=== PATIENT | female | born 1995 | race Caucasian/White ===

== ENCOUNTER 2021-11-22 13:22 | Emergency (ER) | payer BC ==
--- OUTSIDE RECORDS SUMMARY | 2021-11-22 13:25 | XMS REPORT | Continuity of Care Document ---
:1995 Author Organization [facility] t Address [address] [place] [address] Care Team Providers Name Role Phone BRUCE Attending Clinician Unavailable Jeremiah SOLIS, Rosario Attending Clinician LESA Attending Clinician Unavailable Payers Payer Name Policy Type Policy Number Effective Date Expiration Date S [facility] [id number] 2016 00:00:00 Problems Condition Condition Condition Status Onset Resolution Last Treating Co mments Source Name Details Category Date Date Treatment Clinician Date No known No known Disease Kelse y active active Seybold problems problems Allergies, Adverse Reactions, Alerts Allergy Allergy Status Severity Reaction(s) Onset Inactive Treating Comm ents Source Name Type Date Date Clinician NO KNOWN Drug Active [facility] ALLERGIE Class [facility] of [facility] Social History Social Habit Start Date Stop Date Quantity Comments Source Exposure to Not sure aSndi Gonzalezol d SARS-CoV-2 (event) Sex Ass[birth year] At [birth year] Sandi Se ybold 00:00:00 00:00:00 Smoking Status Start Date Stop Date Source Never smoked tobacco Sandi Gonzalez old Medications Ordered Filled Start Stop Current Ordering Indication Dosage Frequency Signature Comments Components Source Medication Medication Date Date Medication? Clinician (SIG) Name Name Benzonatate 2020-10 Yes [id number] 100mg [id number] Take 1 Sandi (Tessalon 0-22 [id number] capsule S nora Doll) 100 00:00: 3D (100 mg MG oral 00 total) by Capsule mouth 3 times daily as needed for cough Azithromyci 2020-10- No [id number] Take 2 Sandi n 250 MG 0-22 10-28 tablets by Seyb old oral Tablet 00:00: 04:59 mouth on 00 :00 day 1 then 1 tablet by mouth daily for 4 days thereafter . Immunizations Ordered Immunization Filled Immunization Date Status Commen ts Source Name Name Meningococcal 2017-02-16 Completed Sandi Seyb old Vaccine- 00:00:00 Conjugate(Menveo) Varicella Vaccine 2002-04-17 Completed Sandi Seybold 00:00:00 DTaP Unspecified 2002-01-23 Completed Sandi S eybold 00:00:00 MMR- Measles, Mumps, 2002-01-23 Completed Jill ey Seybold Rubella 00:00:00 MMR- Measles, Mumps, 2001-05-16 Completed Jill ey Seybold Rubella 00:00:00 IPV- Inactivated 2001-05-16 Completed Sandi S eybold Polio Vaccine 00:00:00 DTaP Unspecified 1998-08-09 Completed Sandi S eybold 00:00:00 IPV- Inactivated 1998-08-09 Completed Sandi S eybold Polio Vaccine 00:00:00 Hib, unspecified 1998-05-08 Completed Sandi S eybold formulation 00:00:00 MMR- Measles, Mumps, 1998-05-08 Completed Jill ey Seybold Rubella 00:00:00 DTaP Unspecified 1995 Completed Sandi S eybold 00:00:00 Hepatitis B, 1995 Completed Sandi Maoybo ld Adolescent Or 00:00:00 Pediatric Hib, unspecified 1995 Completed Sandi S eybold formulation 00:00:00 IPV- Inactivated 1995 Completed Sandi S eybold Polio Vaccine 00:00:00 DTaP Unspecified 1995 Completed Sandi S eybold 00:00:00 Hib, unspecified 1995 Completed Sandi S eybold formulation 00:00:00 OPV- Oral Polio 1995 Completed Sandi Se ybold Vaccine 00:00:00 DTaP Unspecified 1995 Completed Sandi S eybold 00:00:00 Hepatitis B, 1995 Completed Sandi Maoybo ld Adolescent Or 00:00:00 Pediatric Hib, unspecified 1995 Completed Sandi S eybold formulation 00:00:00 OPV- Oral Polio 1995 Completed Sandi Mao ybold Vaccine 00:00:00 Hepatitis B, 1995 Completed Sandi Gabriel ld Adolescent Or 00:00:00 Pediatric Procedures This patient has no known procedures. Encounters Start End Encounter Admission Attending Care Care Encounter Source Date/Time Date/Time Type Type Clinicians Facility Department ID 2021-12-01 2021-12-01 Outpatient R BRUCE [facility] [id number] Univers 10:30:00 10:30:00 ADITHYA [id number] [facility] 2021-07-31 2021-07-31 Telemedici Jeremiah Pierson [id number] Sandi 11:21:42 11:46:43 ne Eliana Silver [id number] Se ghada Somogyi [id number] 2020-12-01 2020-12-01 [facility] [id number] Univers 13:30:00 13:30:00 ADITHYA [id number] [facility] 2020-12-01 2020-12-01 [facility] [id number] Univers 13:30:00 13:30:00 ADITHYA [facility] 2020-11-06 2020-11-06 [facility] [id number] Univers 10:00:00 10:00:00 ADITHYA [id number] [facility] 2020-10-13 2020-10-13 Outpatient R BRUCE [facility] [id number] Univers 08:30:00 08:30:00 ADITHYA [facility] 2020-04-25 2020-04-25 Outpatient R [facility] [id number] Univers 08:00:00 08:00:00 [place] [facility] 2020-04-25 2020-04-25 Outpatient R LESA [facility] [id number] Univers 08:00:00 08:00:00 STEFANY [facility] 2020-04-24 2020-04-24 Outpatient R [facility] [id number] Univers 15:20:00 15:20:00 [id number] [facility] Results This patient has no known results.
[2021-11-22] MEDS ORDERED: ONDANSETRON 4 MG/2 ML VIAL ONE (14:13)
[2021-11-22] MEDS ORDERED: FAMOTIDINE 20 MG/2 ML VIAL IV ONE (14:13)
[2021-11-22] MEDS ORDERED: NA CHLORIDE 0.9% 1,000 ML ONE (14:13)
[2021-11-22 14:20] LABS: Urine Blood 2+ (Negative); Urine Glucose Negative (Negative); Urine Protein Negative (Negative); Urine Specific Gravity >=1.030 (1.005-1.030)
[2021-11-22 14:21] LABS: Absolute Lymphocytes (CBC) 1.9 K/uL (0.7-4.9); Hematocrit 43.1 % (36.0-45.0); Lymphocytes % 32.4 % (15.3-44.8); MPV 8.8 fL (7.6-11.3); RBC Red Blood Cell Count 4.88 M/uL (3.86-4.86)
[2021-11-22 14:51] LABS: ALT/SGPT 92 U/L (12-78); AST/SGOT 52 U/L (15-37); Albumin 3.6 g/dL (3.4-5.0); Alkaline Phosphatase 52 U/L (45-117); BUN Blood Urea Nitrogen 13 mg/dL (7-18); Bicarbonate 22 mmol/L (21-32); Bilirubin Direct < 0.1 mg/dL (0-0.2); Bilirubin Total 0.2 mg/dL (0.2-1.0); Glucose Level 124 mg/dL (74-106); Lipase 58 U/L (73-393); Potassium 3.6 mmol/L (3.5-5.1); Protein, Total 7.6 g/dL (6.4-8.2); Sodium Level 136 mmol/L (136-145)
--- NOTE | 2021-11-22 15:25 | RAD REPORT ---
EXAM DESCRIPTION: CT - Abdomen Pelvis W Contrast - 11/22/2021 3:00 pm CLINICAL HISTORY: ABD PAIN COMPARISON: No comparisons TECHNIQUE: Biphasic, helical CT imaging of the abdomen and pelvis was performed following 100 ml non -ionic IV contrast. No oral contrast administered. All CT scans are performed using dose optimization technique as appropriate and may include automated exposure control or mA/KV adjustment according to patient size. FINDINGS: No suspicious findings in the lung bases. The liver, spleen, and pancreas show no suspicious findings. Gallbladder and biliary tree are also wi thout suspicious finding. Symmetric renal function is seen with no hydronephrosis or suspicious renal mass. No pyelonephritis o r acute parenchymal process. No bladder abnormalities. No adrenal abnormalities. No uterine abnormali ty. Primary ovarian process is not seen. Ovaries are difficult to distinguish from the isodense small bowel. Food and fluid fill the stomach. No gastric wall thickening or mass. Outlet obstruction is not suspec katey. Small bowel loops are not dilated. There are multiple fluid-filled distal small bowel loops. Flu id filled colon seen on the right side. No appendicitis findings. No free air or pneumatosis. Trace free fluid in the dependent portion of the pelvis is within physiol ogic limits. No hernia, mass or bulky lymphadenopathy. No suspicious bony findings. IMPRESSION: Contrast enhanced CT abdomen and pelvis showing no acute or emergent finding. Multiple fluid-filled distal small bowel loops are present. Nonspecific enteritis would be possible.
--- NOTE | 2021-11-22 16:43 | EDPHYS ---
Physician Documentation [facility] Name: Mary Villafana Age: 26 yrs Sex: Female : 1995 Arrival Date: 11/22/2021 Time: 13:28 Bed 14 Private MD: ED Physician Chon Gomez HPI: 11/22 14:00 This 26 yrs old Female presents to ER via Ambulatory with complaints of Abdominal Pain, jmm Nausea/Vomiting/Diarrhea. 14:00 The patient presents with abdominal pain. Onset: The symptoms/episode began/occurred jmm gradually, 4 day(s) ago. The symptoms do not radiate. Associated signs and symptoms: Pertinent positives: nausea and vomiting, diarrhea. The symptoms are described as achy. Modifying factors: The symptoms are alleviated by nothing, the symptoms are aggravated by nothing. The patient has experienced similar episodes in the past, With kidney stones. 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 - Social history:: Smoking status: Reported history of juuling and/or vaping. ROS: 14:00 Constitutional: Negative for fever, chills, and weight loss, Cardiovascular: Negative jmm for chest pain, palpitations, and edema, Respiratory: Negative for shortness of breath, cough, wheezing, and pleuritic chest pain. 14:00 Abdomen/GI: Positive for abdominal pain, nausea and vomiting, diarrhea. 14:00 All other systems are negative. Exam: 14:00 Constitutional: This is a well developed, well nourished patient who is awake, alert, jmm and in no acute distress. Head/Face: atraumatic. Eyes: EOMI, no conjunctival erythema appreciated ENT: Moist Mucus Membranes Neck: Trachea midline, Supple Chest/axilla: Normal chest wall appearance and motion. Cardiovascular: Regular rate and rhythm. No edema appreciated Respiratory: Normal respirations, no respiratory distress appreciated 14:00 Skin: General appearance color normal MS/ Extremity: Moves all extremities, no obvious deformities appreciated, no edema noted to the lower extremities Neuro: Awake and alert Psych: Behavior is normal, Mood is normal, Patient is cooperative and pleasant 14:00 Abdomen/GI: Inspection: abdomen appears normal, Bowel sounds: normal, Palpation: soft, moderate abdominal tenderness, in the right upper quadrant, left upper quadrant, right lower quadrant and left lower quadrant. Vital Signs: 13:33 BP 133 / 106; Pulse 106; Resp 17; Temp 98.3; Pulse Ox 100% ; Weight 52.62 kg; Height 5 7 ft. 2 in. (157.48 cm); Pain 4/10; 15:00 BP 127 / 88; Pulse 88; Resp 20; Pulse Ox 100% ; Pain 6/10; jh6 17:28 BP 132 / 86; Pulse 86; Resp 18; Pulse Ox 99% ; Pain 2/10; jh6 13:33 Body Mass Index 21.22 (52.62 kg, 157.48 cm) 7 MDM: 14:00 Patient medically screened. fermin 16:42 Data reviewed: vital signs, nurses notes. Counseling: I had a detailed discussion with fermin the patient and/or guardian regarding: the historical points, exam findings, and any diagnostic results supporting the discharge/admit diagnosis, lab results, radiology results, the need for outpatient follow up, to return to the emergency department if symptoms worsen or persist or if there are any questions or concerns that arise at home. ED course: Patient is alert and nontoxic in appearance NAD. Able to tolerate p.o. Patient advised follow-up PCP and otherwise given strict return precautions. Patient understood agrees plan of care.. 11/22 14:00 Order name: Basic Metabolic Panel; Complete Time: 14:59 [facility] 11/22 14:00 Order name: CBC with Diff; Complete Time: 14:44 [facility] 11/22 14:00 Order name: Hepatic Function; Complete Time: 14:59 [facility] 11/22 14:00 Order name: Lipase; Complete Time: 14:59 [facility] 11/22 14:20 Order name: Urine Dipstick-Ancillary; Complete Time: 14:22 [facility] 11/22 14:22 Order name: Urine --Ancillary (enter results) 11/22 14:00 Order name: IV Saline Lock; Complete Time: 14:11 [facility] 11/22 14:00 Order name: Labs collected and sent; Complete Time: 14:11 [facility] 11/22 14:00 Order name: Urine Dipstick-Ancillary (obtain specimen); Complete Time: 14:11 [facility] 11/22 14:01 Order name: CT Abd/Pelvis - IV Contrast Only; Complete Time: 15:38 [facility] 11/22 14:22 Order name: Urine --Ancillary; Complete Time: 14:59 [facility] 11/22 14:00 Order name: Urine Test (obtain specimen); Complete Time: 14:11 [facility] Administered Medications: 14:16 Drug: NS 0.9% 1000 ml Route: IV; Rate: 1 bolus; Site: right antecubital; ph 14:17 Drug: Zofran (Ondansetron) 4 mg Route: IVP; Site: right antecubital; ph 14:17 Drug: Pepcid (famotidine) 10 mg Route: IVP; Site: right antecubital; ph Disposition: 19:30 Co-signature as Attending Physician, Chon Gomez MD I agree with the assessment and kdr plan of care. Disposition Summary: 11/22/21 16:43 Discharge Ordered Location: Home [facility] Condition: Stable [facility] Diagnosis - Vomiting [facility] - Diarrhea, unspecified [facility] Followup: [facility] - With: Private Physician - When: 2 - 3 days - Reason: Recheck today's complaints, Continuance of care, Re-evaluation by your physician Discharge Instructions: - Discharge Summary Sheet [facility] - Diarrhea, Adult jm - Vomiting, Child [facility] Forms: - Medication Reconciliation Form [facility] - Thank You Letter [facility] - Antibiotic Education [facility] - Prescription Opioid Use [facility] Prescriptions: - ondansetron 4 mg Oral tablet,disintegrating - place 1 tablet by TRANSLINGUAL route every 4-6 hours; 20 tablet; Refills: 0, [facility] Product Selection Permitted - Carafate 1 gram Oral Tablet - take 1 tablet by ORAL route 4 times per day take on an empty stomach, beginning jm on waking and last dose at bedtime; 100 tablet; Refills: 0, Product Selection Permitted Signatures: Dispatcher [employer] [facility] Chon Gomez MD MD kdr Mickail, Joel, PA PA [facility] Angela Petersen RN RN ph Essence Sahu RN RN jl7 Corrections: (The following items were deleted from the chart) 13:35 13:34 Home Meds: None; jl7 jl7 13:35 13:34 PMHx: None; jl7 jl7
--- NOTE | 2021-11-22 16:43 | ER ---
Nurse's Notes [facility] Name: Mary Villafana Age: 26 yrs Sex: Female : 1995 Arrival Date: 11/22/2021 Time: 13:28 Bed 14 Private MD: Diagnosis: Vomiting;Diarrhea, unspecified Presentation: 11/22 13:33 Chief complaint: Patient states: Lower abdominal pain, N/V/D x 3 days. Coronavirus jl7 screen: At this time, the client does not indicate any symptoms associated with coronavirus-19. Ebola Screen: No symptoms or risks identified at this time. Initial Sepsis Screen: Does the patient meet any 2 criteria? No. Patient's initial sepsis screen is negative. Does the patient have a suspected source of infection? No. Patient's initial sepsis screen is negative. Risk Assessment: Do you want to hurt yourself or someone else? Patient reports no desire to harm self or others. Onset of symptoms was November 19, 2021. 13:33 Method Of Arrival: Ambulatory [facility] 13:33 Acuity: KATHERINE 3 jl7 Triage Assessment: 13:34 General: Appears in no apparent distress. uncomfortable, Behavior is calm, cooperative, jl7 appropriate for age. Pain: Complains of pain in right lower quadrant and left lower quadrant Pain currently is 4 out of 10 on a pain scale. at worst was 9 out of 10 on a pain scale. GI: Reports diarrhea, nausea, vomiting. 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 - Social history:: Smoking status: Reported history of juuling and/or vaping. Screenin:40 Abuse screen: Denies threats or abuse. 6 13:40 Nutritional screening: No deficits noted. Tuberculosis screening: No symptoms or risk 6 factors identified. Fall Risk IV access (20 points). Assessment: 13:40 General: Appears in no apparent distress. Behavior is calm, cooperative. 6 13:40 Pain: Complains of pain in right upper quadrant, left upper quadrant, right lower jh6 quadrant and left lower quadrant Pain currently is 7 out of 10 on a pain scale. Quality of pain is described as crampy. 13:40 GI: Abd is soft and non tender. jh6 14:50 Reassessment: No changes from previously documented assessment. Patient is alert, jh6 oriented x 3, equal unlabored respirations, skin warm/dry/pink. Patient states symptoms have improved. 16:20 Reassessment: Patient is alert, oriented x 3, equal unlabored respirations, skin jh6 warm/dry/pink. Patient denies pain at this time. Patient states feeling better. Vital Signs: 13:33 BP 133 / 106; Pulse 106; Resp 17; Temp 98.3; Pulse Ox 100% ; Weight 52.62 kg; Height 5 jl7 ft. 2 in. (157.48 cm); Pain 4/10; 15:00 BP 127 / 88; Pulse 88; Resp 20; Pulse Ox 100% ; Pain 6/10; jh6 17:28 BP 132 / 86; Pulse 86; Resp 18; Pulse Ox 99% ; Pain 2/10; jh6 13:33 Body Mass Index 21.22 (52.62 kg, 157.48 cm) 7 ED Course: 13:28 Patient arrived in ED. j6 13:34 Triage completed. jl7 13:34 Arm band placed on right wrist. jl7 13:40 Bed in low position. Call light in reach. Side rails up X 1. Adult w/ patient. [facility] 13:43 Sebastián Alicea PA is PHCP. [facility] 13:43 Chon Gomez MD is Attending Physician. [facility] 13:44 Selena Rodrigues, CODIE is Primary Nurse. 6 14:17 Initial lab(s) drawn, sent to lab. Inserted saline lock: 22 gauge in right antecubital ph area, using aseptic technique. Blood collected. 14:[address] jh6 15:00 CT Abd/Pelvis - IV Contrast Only In Process Unspecified. EDMS 16:20 IV discontinued, intact, bleeding controlled, No redness/swelling at site. Pressure jh6 dressing applied. Administered Medications: 14:16 Drug: NS 0.9% 1000 ml Route: IV; Rate: 1 bolus; Site: right antecubital; ph 14:17 Drug: Zofran (Ondansetron) 4 mg Route: IVP; Site: right antecubital; ph 14:17 Drug: Pepcid (famotidine) 10 mg Route: IVP; Site: right antecubital; ph Outcome: 16:43 Discharge ordered by MD. christensen 17:31 Discharged to home ambulatory. jh6 17:31 Condition: good 17:31 Discharge instructions given to patient, Instructed on discharge instructions, follow up and referral plans. Demonstrated understanding of instructions, follow-up care, medications, Prescriptions given X 1. 17:32 Patient left the ED. jh6 Signatures: Dispatcher [employer] EDMS Sebastián Alicea PA PA jmm Hall, Patricia RN RN Essence Sahu RN RN Selena Salter jj6 Selena Rodrigues RN RN jh6 Corrections: (The following items were deleted from the chart) 13:35 13:34 Home Meds: None; gabe jl7 13:35 13:34 PMHx: None; gabe jlJoshua
[2021-11-22 17:44] VITALS: TEMP 98.3
[2021-11-22 17:46] VITALS: BP 132/86; O2SAT 99
== END 2021-11-22 17:32 | disposition home or self-care (01) ==
LOC: ER 13:22
DX: R11.2 Nausea with vomiting, unspecified (principal); R19.7 Diarrhea, unspecified
CPT/HCPCS: 85025; 80048; 36415; 81025; 80076; 81003; 83690; 74177; 96375; 96374; 99284; Q9967; J7030; J2405